=== PATIENT | male | born 1975 | race Caucasian/White ===

== ENCOUNTER 2020-11-29 16:52 | Emergency (ER) | payer OTHER ==
[2020-11-29] MEDS ORDERED: CYCLOBENZAPRINE10 MG PO (18:36)
[2020-11-29] MEDS ORDERED: NAPROXEN500 MG PO (18:36)
== END 2020-11-29 18:52 | disposition home or self-care (01) ==
LOC: FER 16:52
DX: S16.1XXA Strain of muscle, fascia and tendon at neck level, initial encounter (principal); S39.012A Strain of muscle, fascia and tendon of lower back, initial encounter; M25.552 Pain in left hip; V43.52XA Car driver injured in collision with other type car in traffic accident, initial encounter; Y92.410 Unspecified street and highway as the place of occurrence of the external cause
CPT/HCPCS: 72050; 72110; 73502

== ENCOUNTER 2021-01-09 09:16 | Emergency (ER) | payer OTHER ==
[~2021-01-09 09:16] MED LIST: CYCLOBENZAPRINE10 MG PO; NAPROXEN500 MG PO
== END 2021-01-09 13:41 | disposition home or self-care (01) ==
LOC: FER 09:16
DX: U07.1 COVID-19 (principal); J45.909 Unspecified asthma, uncomplicated; E66.9 Obesity, unspecified
CPT/HCPCS: M0243; Q0244